=== PATIENT | male | born 1960 | race Caucasian/White ===

== ENCOUNTER 2022-06-29 13:11 | Emergency (ER) | payer BC, SELFPAY ==
[2022-06-29 13:56] VITALS: BP 164/90; PULSE 101; RESP 20; TEMP 36.9; O2SAT 98; BMI 34.7
--- NOTE | 2022-06-29 14:23 | ED.NURSE ---
Patient is on camera monitoring and is in modified safe room. is at bedside.
--- NOTE | 2022-06-29 14:31 | ED_ITS ---
HPI - General Adult General Date Seen: 06/29/22 Chief complaint: Psychiatric Problem/Disorder Stated complaint: Mental Health Time Seen by Provider: 06/29/22 13:56 Source: patient and family Mode of arrival: ambulatory Limitations: no limitations History of Present Illness HPI narrative: Patient is a 62-year-old male here with his for evaluation of depression and suicidal ideation. He tells me that he has had depression for quite some time, had been managed on citalopram and says that things were really going relatively well. However, over the last month he has been having more trouble. He had asked his primary doctor to increase his citalopram, but apparently instead he had added bupropion. He found that on the bupropion he was feeling jittery and was not sleeping well, was having just a lot of side effects. Therefore, the citalopram and bupropion were stopped in a couple of days ago he was prescribed a completely new medication, which he does not remember the name of. He has taken a few doses of that. However, today, he things came to a head and he was threatening to kill himself. He says that he has been feeling increasingly worthless, as if his would be better off without him. He does have a number of guns at home as he hunts. His says that she had to wrestle a gun away from him. He is a very large tony, well over 6 ft tall and I would guess 300 lb. His said it was difficult to accomplish this. She did call his brother, who recommended calling the police and she says they were very helpful. Patient himself is somewhat emotional, he says that they have been under a significant amount of stress, he had broken his femur sometime in the past couple of years, and then in the process of healing up from that while his was taking care of him she had a seizure, she ultimately was diagnosed with a brain tumor and had to have surgery for that. They are estranged from both of their children and that is a significant stressor as well, and they have financial stresses as well. Overall, it sounds as if there is a combination of a combination of multiple stresses combined with right now essentially no antidepressant on board. He says that he was having difficulty sleeping while on the bupropion but is better off of it. He is eating fine. He has had suicidal thoughts frequently in the last month but today was worse. He denies significant alcohol use, no other substance use. His says they bought some THC gummies which she occasionally uses for sleep but he says he does not use those. Related Data Allergies Allergy/AdvReac Type Severity Reaction Status Date / Time lisinopril Allergy Intermediate Cough Verified 06/29/22 14:32 Review of Systems Status of ROS: Reports: 6 or more systems reviewed and unremarkable except as noted in History and below Exam Narrative: Exam Narrative: Vital signs as noted above. In general, an alert, nontoxic male. Reasonably groomed, no eye contact. Head: Normocephalic, atraumatic. Eyes: Pupils are equal reactive. Extraocular movements are full. Conjunctivae are normal. ENT: Mucous membranes are moist. Neck: Supple without lymphadenopathy. Heart: Regular rate and rhythm. No murmur or rub. Lungs: Clear bilaterally. No increased work of breathing, crackles or wheezes. Abdomen: Soft and nontender. No organomegaly. Extremities: Well perfused. No edema. No calf tenderness. Pulses intact. Neurologic: Patient is alert and oriented to person and place. Speech is fluent. Face is symmetric. Moves all extremities equally. Affect: Flat. Skin: Warm and dry. Well perfused. Const: Vital Signs, click to edit/add: Vital Signs - 24 hr 06/29/22 13:56 Temperature 98.4 F Pulse Rate [Pulse Oximeter] 101 H Respiratory Rate 20 Blood Pressure [Ri ght Upper Arm] 164/90 H Pulse Oximetry 98 Oxygen Delivery Me thod Room Air Documenting provider has reviewed patient's vital signs: yes Course Course Hospital Course: After speaking with the patient, I do think he is high risk for self-harm. He is essentially off antidepressant medication at this time, he has numerous social stressors and is not coping well. He talks about significant feelings of hopelessness and feelings of worthlessness. He has access to weapons at home and it might be difficult to resolve all of that quickly. I do think he would do best with inpatient treatment. I have had [facility] talk with him and that is their feeling as well. Overall, I think he is in agreement with this, recognizes that he is in need of more intensive assistance right now. He has been cooperative here. We did check some labs which are unremarkable. GUNJAN is negative. Will go ahead and start looking for an appropriate inpatient bed for him. Patient is transferred for inpatient psychiatric care without incident. Vital Signs Vital signs: Initial Vital Signs Temperature 98.4 F 06/29/22 13:56 Temperature Source Temporal Artery Scan 06/29/22 13:56 Pulse Rate 101 H 06/29/22 13:56 Pulse Rhythm 06/29/22 13:56 Pulse Strength 3+ Normal 06/29/22 13:56 Respiratory Rate 20 06/29/22 13:56 Blood Pressure 164/90 H 06/29/22 13:56 Blood Pressure Mean 114 06/29/22 13:56 Blood Pressure Position Sitting 06/29/22 13:56 Pulse Oximetry 98 06/29/22 13:56 Oxygen Delivery Method 06/29/22 13:56 Vital Signs Temperature 98.4 F 06/29/22 13:56 Pulse Rate 101 H 06/29/22 13:56 Respiratory Rate 20 06/29/22 13:56 Blood Pressure 164/90 H 06/29/22 13:56 Pulse Oximetry 98 06/29/22 13:56 Oxygen Delivery Method 06/29/22 13:56 Temperature 97.9 F 06/29/22 19:50 Pulse Rate 66 06/29/22 19:50 Respiratory Rate 20 06/29/22 13:56 Blood Pressure 141/89 H 06/29/22 19:50 Pulse Oximetry 97 06/29/22 19:50 Oxygen Delivery Method 06/29/22 19:50 Medical Decision Making Lab Data Labs: Lab Results 06/29/22 06/29/22 06/29/22 Range/Units 14:26 14:50 14:50 WBC 9.01 (4.50-11.00) K/uL RBC 5.78 (4.30-5.90) m/uL Hgb 17.6 H (13.5-17.5) gm/dL Hct 51.9 (37.0-53.0) % MCV 90 (80-100) fL MCH 30 (26-34) pg MCHC 34 (32-36) gm/dL RDW Coeff of Romain 13.0 (11.5-15.5) % Plt Count 189 (140-440) K/uL Neut % (Auto) 75.0 H (42.0-72.0) % Lymph % (Auto) 14.4 L (20-44) % [place] % (Auto) 6.7 (0.0-11.0) % Eos % (Auto) 2.0 (0.0-7.0) % Baso % (Auto) 0.3 (0.0-3.0) % Neut # (Auto) 6.80 (1.7-7.0) K/uL Lymph # (Auto) 1.30 (0.90-2.90) K/uL [place] # (Auto) 0.60 (0.00-0.90) K/UL Eos # (Auto) 0.18 (0.00-0.50) K/uL Baso # (Auto) 0.03 (0.00-0.30) K/uL Sodium 136 (135-149) mmol/L Potassium 4.2 (3.6-5.1) mmol/L Chloride 103 (96-114) mmol/L Carbon Dioxide 26 (20-32) mmol/L BUN 15 (7-30) mg/dL Creatinine 1.1 (0.5-1.5) mg/dL Estimated Creat Clear 91.17 Estimated GFR 76 ml/min Glucose 105 (60-115) mg/dL Calcium 9.4 (8.4-10.6) mg/dL Salicylates < 1.0 L (1.0-10) mg/dL Urine Opiates Screen (Negative) Ur Oxycodone Screen (Negative) Urine Methadone Screen (Negative) Ur Propoxyphene Screen (Negative) Acetaminophen < 10.0 L (10.0-30.0) ug/mL Ur Barbiturates Screen (Negative) U Tricyclic Antidepress (Negative) Ur Phencyclidine Scrn (Negative) Ur Amphetamines Screen (Negative) U Methamphetamines Scrn (Negative) U Benzodiazepines Scrn (Negative) Urine Cocaine Screen (Negative) U Marijuana (THC) Screen (Negative) Ur Drug Screen Comment Ethyl Alcohol < 0.01 L (0.01-0.03) % SARS-CoV-2 (PCR) Negative SARS-CoV-2 (Negative) 06/29/22 06/29/22 Range/Units 14:50 18:30 WBC (4.50-11.00) K/uL RBC (4.30-5.90) m/uL Hgb (13.5-17.5) gm/dL Hct (37.0-53.0) % MCV (80-100) fL MCH (26-34) pg MCHC (32-36) gm/dL RDW Coeff of Romain (11.5-15.5) % Plt Count (140-440) K/uL Neut % (Auto) (42.0-72.0) % Lymph % (Auto) (20-44) % [place] % (Auto) (0.0-11.0) % Eos % (Auto) (0.0-7.0) % Baso % (Auto) (0.0-3.0) % Neut # (Auto) (1.7-7.0) K/uL Lymph # (Auto) (0.90-2.90) K/uL [place] # (Auto) (0.00-0.90) K/UL Eos # (Auto) (0.00-0.50) K/uL Baso # (Auto) (0.00-0.30) K/uL Sodium (135-149) mmol/L Potassium (3.6-5.1) mmol/L Chloride (96-114) mmol/L Carbon Dioxide (20-32) mmol/L BUN (7-30) mg/dL Creatinine (0.5-1.5) mg/dL Estimated Creat Clear Estimated GFR ml/min Glucose (60-115) mg/dL Calcium (8.4-10.6) mg/dL Salicylates Cancelled (1.0-10) mg/dL Urine Opiates Screen Negative (Negative) Ur Oxycodone Screen Negative (Negative) Urine Methadone Screen Negative (Negative) Ur Propoxyphene Screen Negative (Negative) Acetaminophen (10.0-30.0) ug/mL Ur Barbiturates Screen Negative (Negative) U Tricyclic Antidepress Negative (Negative) Ur Phencyclidine Scrn Negative (Negative) Ur Amphetamines Screen Negative (Negative) U Methamphetamines Scrn Negative (Negative) U Benzodiazepines Scrn Negative (Negative) Urine Cocaine Screen Negative (Negative) U Marijuana (THC) Screen Negative (Negative) Ur Drug Screen Comment See Note Ethyl Alcohol Cancelled (0.01-0.03) % SARS-CoV-2 (PCR) (Negative) Discharge Plan Discharge Clinical Impression: Suicidal ideation, Depression Patient Disposition: Xfer Other Condition: Stable
--- NOTE | 2022-06-29 14:42 | ED.NURSE ---
Patient attempted to change into scrubs but did not fit.
[2022-06-29 14:59] LABS: Basophils Absolute Auto 0.03 K/uL (0.00-0.30); Basophils Percent Auto 0.3 % (0.0-3.0); Eosinophils Absolute Auto 0.18 K/uL (0.00-0.50); Hematocrit 51.9 % (37.0-53.0); Hemoglobin* 17.6 gm/dL (13.5-17.5); Immature Granulocytes Abs Auto 0.14 K/uL (0.00-0.30); Immature Granulocytes Pct Auto 1.6 %; Lymphocytes Percent Auto 14.4 % (20-44); Mean Corpuscular HGB Conc 34 gm/dL (32-36); Mean Corpuscular Hemoglobin 30 pg (26-34); Mean Corpuscular Volume 90 fL (80-100); Monocytes Percent Auto 6.7 % (0.0-11.0); Platelet Count* 189 K/uL (140-440); Red Blood Count 5.78 m/uL (4.30-5.90); White Blood Count* 9.01 K/uL (4.50-11.00)
[2022-06-29 15:01] LABS: Slide Review Reflex No
[2022-06-29 15:12] LABS: Chloride* 103 mmol/L (96-114)
[2022-06-29 15:13] LABS: SARS PCR* Negative SARS-CoV-2 (Negative)
[2022-06-29 15:13] LABS: Potassium* 4.2 mmol/L (3.6-5.1); Sodium* 136 mmol/L (135-149)
[2022-06-29 15:15] LABS: Carbon Dioxide* 26 mmol/L (20-32); Creatinine* 1.1 mg/dL (0.5-1.5); Est. Creatinine Clearance* 91.17; Estimated Glomerular Filt Rate 76 ml/min
[2022-06-29 15:16] LABS: Blood Urea Nitrogen* 15 mg/dL (7-30); Calcium* 9.4 mg/dL (8.4-10.6); Glucose* 105 mg/dL (60-115)
[2022-06-29 15:19] LABS: Acetaminophen* < 10.0 ug/mL (10.0-30.0); Ethanol* < 0.01 % (0.01-0.03); Salicylate* < 1.0 mg/dL (1.0-10)
--- NOTE | 2022-06-29 15:41 | ED.NURSE ---
Offered lunch and brought patient water. Declines offer of meal. Recliner chair brought in for comfort.
--- NOTE | 2022-06-29 16:31 | ED.NURSE ---
Patient participating with [facility].
[2022-06-29 18:45] LABS: Amphetamine Screen Urine Negative (Negative); Barbiturate Screen Urine Negative (Negative); Benzodiazepines Screen Urine Negative (Negative); Cannabinoid Screen Urine Negative (Negative); Cocaine Screen Urine Negative (Negative); Methadone Screen Urine Negative (Negative); Methamphetamines Screen Urine Negative (Negative); Opiate Screen Urine Negative (Negative); Oxycodone Screen Urine Negative (Negative); Phencyclidine Screen Urine Negative (Negative); Tricyclic Antidepressant Urine Negative (Negative)
--- NOTE | 2022-06-29 19:25 | ED.NURSE ---
[facility] unable to accept pt due to pt needing CPAP
[2022-06-29 19:50] VITALS: BP 141/89; PULSE 66; TEMP 36.6; O2SAT 97
[2022-06-29] MEDS: LORazepam 1 MG TABLET PO (21:01)
--- NOTE | 2022-06-29 21:02 | ED.NURSE ---
pt feeling anxious about transfer, MD informed, 1 mg of oral Ativan ordered and administered by this RN, (MQ).
--- NOTE | 2022-06-29 21:17 | ED.NURSE ---
[facility] here at [facility] and given contact info. Personal belongings returned to patient at time of transfer. RN report called to [facility].
== END 2022-06-29 21:59 | disposition other institution (70) ==
PROVIDERS: Emergency Provider Emergency Medicine; PCP Family Medicine
DX: R45.851 Suicidal ideations (principal); F32.A Depression, unspecified
CPT/HCPCS: 36415; 80048; 80143; 80179; 80306; 82077; 85025; 87635; 99284; 99285; A9270

== ENCOUNTER 2022-06-29 20:49 | Outpatient (CLI) | payer BC, SELFPAY | END 2022-06-29 20:50 | disposition home or self-care (01) | LOC: AMB 07-01 12:52 | PROVIDERS: PCP Family Medicine; Visit Provider Emergency Medicine Emergency Medical Services | DX: R45.851 Suicidal ideations (principal) | CPT/HCPCS: A0425; A0428 ==